=== PATIENT | male | born 1950 | race Caucasian/White ===

== ENCOUNTER 2021-11-28 01:47 | Day surgery (SDC) | payer MEDICARE, SELFPAY ==
[2021-10-15 15:30] VITALS: BMI 33.8
--- NOTE | 2021-11-13 14:11 | SUR.PREOP ---
Patient states no changes in health history or medications since previous interview. Updated on times and prep instructions. No questions at this time.
[2021-11-28 10:07] VITALS: BP 143/76; PULSE 72; RESP 20; TEMP 36.5; O2SAT 98
[2021-11-28] MEDS: LACTATED RINGERS 1,000 ML 150 ML IV CONT (10:14)
--- NOTE | 2021-11-28 10:48 | P.HP_ITS ---
History of Present Illness History of Present Illness Consent: Risks, benefits, and alternatives have been discussed and questions answered. Patient agrees to proceed with procedure. Chief complaint: family hx of colon ca Narrative: Jarocho Lopez is a 71 year old male referred for colon cancer screening. His father had colon cancer. He had a tubular adenoma removed 10 years ago. He had another polyp a small polyp removed somewhere in [place] about 5 years ago. Review of Systems Review of Systems: All systems reviewed & are unremarkable except as noted in HPI and below PMFSH Past Medical History Medical History (Updated 11/28/21 @ 10:49 by Oneil Shah MD) Abnormal colonoscopy History of BPH Hyperlipidemia Surgical History Surgical History (Updated 09/17/21 @ 16:03 by Jacqueline Shaw [facility]) Hx of colonoscopy 09/07/2011-colon polyps, tubular adenoma-repeat 5 years 09/30/2016-sigmoid colon polyp-repeat 5 yrs Family History Family History Father Carcinoma of colon Mother Family history of lung cancer Family history of malignant neoplasm of breast in first degree relative Sibling Family history of malignant neoplasm of breast in first degree relative Social History Social History Smoking status: Never smoker Second hand tobacco smoke exposure: No Alcohol intake: current Drinks per week: 1 Alcohol use details: beer Substance use: never Substance use type: does not use Living arrangements: with family Gender identity (if verbalized by the patient): Male Spiritual care concerns: No Agree to blood products: Yes Meds Home Medications and Allergies Home Medications Medication Instructions Recorded Confirmed Type ferrous sulfate 325 mg (65 mg 325 mg PO DAILY 04/09/20 10/15/21 History iron) tablet (Nilda-Time) Prevagen 1 cap PO DAILY 10/15/21 10/15/21 History simvastatin 10 mg tablet 10 mg PO DAILY 10/15/21 10/15/21 History vitamins A,C,Z-kmlo-qvbjjb 14,320 1 cap PO BID 10/15/21 10/15/21 History unit-226 mg-200 unit capsule (PreserVision AREDS) Allergies Allergy/AdvReac Type Severity Reaction Status Date / Time No Known Allergies Allergy Verified 11/28/21 10:06 Vital Signs Vital Signs - 24 hr 11/28/21 10:07 Temperature 36.5 C Pulse Rate 72 Respiratory Rate 20 Blood Pressure 143/76 H Pulse Oximetry 98 Oxygen Delivery Room Air Exam Resp: Auscultation: clear to auscultation bilaterally Cardio: Rate: regular rate Rhythm: regular rhythm GI: GI Palp: Yes Soft to palpation and No Tenderness to palpation present (GI) Assessment and Plan Assessment and plan (1) Colon cancer screening: Code(s): Z12.11 - Encounter for screening for malignant neoplasm of colon Status: Acute Assessment and Plan: Colonoscopy with possible biopsy or polypectomy or cautery or injection of substances.
--- NOTE | 2021-11-28 10:53 | WPDANESEPPF ---
Anes - Initial Pre Proc Eval Procedure: Operation Date: 11/28/21 11:15 Proposed Procedures p Screening Colonoscopy - Oneil Shah MD Date/Time: 11/28/21 10:53 Surgeon: Oneil Shah MD Pre Op Diagnosis: family hx of colon ca Patient Data Age: 71 Gender: M Height: 1.78 m Weight: 103.1 kg Last Vital Signs Temp 97.7 F 11/28/21 10:07 Pulse 72 11/28/21 10:07 Resp 20 11/28/21 10:07 BP 143/76 H 11/28/21 10:07 Pulse Ox 98 11/28/21 10:07 O2 Del Method Room Air 11/28/21 10:07 Allergies Allergy/AdvReac Type Severity Reaction Status Date / Time No Known Allergies Allergy Verified 11/28/21 10:06 Home Medications Medication Instructions Recorded Confirmed Type ferrous sulfate 325 mg (65 mg 325 mg PO DAILY 04/09/20 10/15/21 History iron) tablet (Nilda-Time) Prevagen 1 cap PO DAILY 10/15/21 10/15/21 History simvastatin 10 mg tablet 10 mg PO DAILY 10/15/21 10/15/21 History vitamins A,C,J-ogta-onyizp 14,320 1 cap PO BID 10/15/21 10/15/21 History unit-226 mg-200 unit capsule (PreserVision AREDS) Patient hx anesthesia problems: none Family hx anesthesia problems: none Results Review: All pre-operative results and documents have been reviewed as part of the pre-operative evaluation. [facility] Past Medical History Medical History (Updated 11/28/21 @ 10:49 by Oneil Shah MD) Abnormal colonoscopy History of BPH Hyperlipidemia Surgical History Surgical History (Updated 09/17/21 @ 16:03 by Jacqueline Shaw CMA) Hx of colonoscopy 09/07/2011-colon polyps, tubular adenoma-repeat 5 years 09/30/2016-sigmoid colon polyp-repeat 5 yrs Family History Family History Father Carcinoma of colon Mother Family history of lung cancer Family history of malignant neoplasm of breast in first degree relative Sibling Family history of malignant neoplasm of breast in first degree relative Social History Social History Smoking status: Never smoker Second hand tobacco smoke exposure: No Alcohol intake: current Drinks per week: 1 Alcohol use details: beer Substance use: never Substance use type: does not use Living arrangements: with family Gender identity (if verbalized by the patient): Male Spiritual care concerns: No Agree to blood products: Yes Anes - Eval Final PreProcedure Day of Procedure 11/28/21 10:53 Patient weight: obese Heart: regular rate and rhythm Lungs: clear to auscultation Airway: Mallampati scale class II Neurological: alert and oriented Last oral intake: >/= 8 hours ASA classification: II Emergent: no Anesthetic plan: proceed Anesthesia type and monitoring: general GIVS and standard monitoring Results Review: All pre-operative results and documents have been reviewed as part of the pre-operative evaluation. Informed Consent: The patient's anesthetic plan and its attendant risks and benefits were discussed with the patient/family/POA. Questions were solicited and answers provided to the satisfaction of the patient/family/POA.
[2021-11-28 11:20] VITALS: BP 124/84; PULSE 63; RESP 20; O2SAT 96
[2021-11-28 11:30] VITALS: BP 127/84; PULSE 63; RESP 20; O2SAT 98
[2021-11-28 11:38] VITALS: BP 125/86; PULSE 61; RESP 20; O2SAT 98
== END 2021-11-28 11:48 | disposition home or self-care (01) ==
PROVIDERS: PCP Family Medicine; Visit Provider Internal Medicine Gastroenterology
PROC: 0DJD8ZZ Inspection of Lower Intestinal Tract, Via Natural or Artificial Opening Endoscopic (ICD-10-PCS; CPT 45378; principal; 2021-11-28 11:15)
DX: Z12.11 Encounter for screening for malignant neoplasm of colon (principal); K57.30 Diverticulosis of large intestine without perforation or abscess without bleeding; Z80.0 Family history of malignant neoplasm of digestive organs; Z86.010 Personal history of colon polyps; E78.5 Hyperlipidemia, unspecified; E66.9 Obesity, unspecified; Z68.32 Body mass index [BMI] 32.0-32.9, adult
CPT/HCPCS: G0105; J2704; J7120

== ENCOUNTER 2024-11-27 21:10 | Emergency (ER) | payer MEDICARE, SELFPAY ==
--- NOTE | ~2024-11-27 | CT_ITS ---
Non-contrast CT scan of the Abdomen and Pelvis Clinical indication: Right flank pain Technique: 2.5 mm axial scans were obtained through the abdomen and pelvis without intravenous or or al contrast. Dose reduction technique was used on this scan by utilizing automated exposure control a nd iterative reconstruction technique. The dose-length product (DLP) was 1202.04 mGy-cm. Findings: Images through the lung bases reveal left basilar atelectatic change or scarring. 10 mm nonobstructing left lower pole renal stone present. Punctate nonobstructing right renal stone p resent. No ureteral stone or hydronephrosis on either side. Probable subtle 3.4 cm hypodense mass at the upper left hepatic lobe (axial image 45). The spleen, pa ncreas, gallbladder, and adrenals appear normal. There is no extensive atherosclerotic calcification of the aorta with 3.5 cm infrarenal abdominal aortic aneurysm. There is no evidence of bowel obstruction. Images through the pelvis were performed. There is no evidence of ascites or lymphadenopathy. Urinary bladder unremarkable. No pelvic mass seen. No ascites. Impression: Bilateral nonobstructing renal stones, as detailed above. No ureteral stone or hydronephrosis. Probable subtle 3.4 cm hypodense hepatic mass, as above. Follow-up pre and postcontrast MR recommende d to further assess. 3.5 cm infrarenal abdominal aortic aneurysm. Reviewed, dictated and finalized at [facility]. Impression: Bilateral nonobstructing renal stones, as detailed above. No ureteral stone or hydronephrosis. Probable subtle 3.4 cm hypodense hepatic mass, as above. Follow-up pre and post contrast MR recommended to further assess. 3.5 cm infrarenal abdominal aortic aneurysm.
[2024-11-27 21:11] VITALS: BP 149/96; PULSE 70; RESP 18; TEMP 36.9; O2SAT 97
--- OUTSIDE RECORDS SUMMARY | 2024-11-27 21:12 | XMS_ITS | Clinical Summary ---
Author Organization [facility] Address [address] [place] [address] Care Team Providers Care Material Clerk Name Role Phone Unavailable Primary Care Provider Unavailabl e Source Comments [facility] [employer],non-owned Affiliates and Associated Physician Practices is amultiple site organization consisting of ambulatory clinics and hospital sitesin [place], [place], [place] and [place]. This disclosure is being madepursuant to the Care Everywhere program and may not contain all information available regarding this patient. Last updated 18.[facility] [employer] Social History Tobacco Use Types Packs/Day Years Used Date Smoking Tobacco: Never Assessed Sex and Gender Information Value Date Recorded Sex Assigned at Not on file Legal Sex Male 5:01 PM CDT Gender Identity Not on file Sexual Orientation Not on file Plan of Treatment Health Maintenance Due Date Last Done Comments COLOGUARD (AGES 45-75) - COL ON CA SCREENING 1950 COLON MONITORING 1950 COLONOSCOPY - COLON CA SCREENING 1950 CT COLONOGRAPHY - COLON CA SCREENING 1950 Colorectal Cancer Screening 1950 FIT - COLON CA SCREENING 1950 FLEX SIG - COLON CA SCREENING 1950 LIPID TESTING 1950 HEPATITIS C SCREENING 01/22/1968 DTAP/TDAP/TD VACCINES (1 - Tdap) 1969 PNEUMOCOCCAL VACCINE 50+ (1 of 1 - PCV) 01/27/2000 ZOSTER VACCINE (1 of 2) 01/27/2000 COVID-19 VACCINE ( - 2023-2 5 season) 2024 DEPRESSION SCREENING 05/31/2024 MEDICARE AWV CALENDAR YEAR 2024 Respiratory Syncytial Virus (RSV) Vaccine Pt: or over 60 yrs (1 - 1-dose 75+ series) 2025 INFLUENZA VACCINE (Season Ended) 2025 HEPATITIS B VACCINE Aged Out No longe r eligible based on patient's age to complete this topic HIB VACCINE Aged Out No longer eligi ble based on patient's age to complete this topic HPV VACCINE Aged Out No longer eligi ble based on patient's age to complete this topic MENINGOCOCCAL (Group B) VACC INE SHARED DECISION-MAKING Aged Out No longer eligibl e based on patient's age to complete this topic MENINGOCOCCAL GROUPS A/C/Y/W VACCINE Aged Out No longer eligible b ased on patient's age to complete this topic Insurance AETNA MEDICARE ADV
--- OUTSIDE RECORDS SUMMARY | 2024-11-27 21:12 | XMS_ITS | Encounter Summary ---
Author Organization [facility] Address [address] [address] Care Team Providers Care Group Rooms Coordinator Name Role Phone Unavailable Primary Care Provider Unavailabl e Encounter Details Date Type Department Care Team (Late st Contact Info) Description 09/02/2023 Lab Requisition [facility] - DermPath Lab [address] [place] [id number] Bran Mullen MD [facility] DERMATOLOGY [address] [place] [phone] Neoplasm of uncertain behavior of skin Social History Tobacco Use Types Packs/Day Years Used Date Smoking Tobacco: Never Assessed Sex and Gender Information Value Date Recorded Sex Assigned at Not on file Legal Sex Male 5:01 PM CDT Gender Identity Not on file Sexual Orientation Not on file documented as of this encounter Plan of Treatment Not on file documented as of this encounter Procedures Procedure Name Priority Date/Time Associated Diagnosis Comments DERMATOPATHOLOGY Routine 09/02/2023 3:33 AM CDT Neoplasm of uncertain behavior of skin documented in this encounter Results * DERMATOPATHOLOGY (09/02/2023 3:33 AM CDT) Case Report Dermatopathology Report Case: [id number] Authorizing Provider: Bran Mullen MD Collected: 09/02/2023 03:33 AM Ordering Location: [facility] Physician [facility] - Received: 09/03/2023 01:31 PM DermPath Lab Pathologist: Laura Childers MD Specimens: A) - Skin, right chin B) - Skin, left forearm 12:44 PM CDT DERMATOPATHOLOGY LABORATORY Final Diagnosis Specimen A. SKIN, right chin: NEUROFIBROMA (D36.10) Specimen B. SKIN, left forearm: ACTINIC KERATOSIS, INFLAMED (L57.0) 12:44 PM CDT DERMATOPATHOLOGY LABORATORY at 1244 CDT Clinical History A: Basal Cell Carcinoma vs Neurofibroma B: Basal Cell Carcinoma vs Irritated Seborrheic 12:44 PM CDT DERMATOPATHOLOGY LABORATORY Gross Description Specimen A: Received is one formalin filled container labeled with the patient's name and designated right chin. The specimen consists of a two pieces shave biopsy measuring 7x5x1, 4x3x1 mm. Jar 0. Specimen B: Received is one formalin filled container labeled with the patient's name and designated left forearm. The specimen consists of a shave biopsy measuring 7x5x1 mm. Jar 0. 12:44 PM CDT DERMATOPATHOLOGY LABORATORY Microscopic Description Specimen A. SKIN, right chin: Sections show a proliferation of spindled and S-shaped cells within the dermis. The stromal collagen is delicate and pale. Specimen B. SKIN, left forearm: There is focal parakeratosis. The lower half of the epidermis shows disorderly maturation of keratinocytes with nuclear pleomorphism. The lesion is inflamed. 12:44 PM CDT DERMATOPATHOLOGY LABORATORY Disclaimer An external and internal positive and negative controls are appropriate for the histochemical, immunohistochemical and immunofluorescence stain(s) in this case (if any), except where stated explicitly. The performance characteristics of the stain(s) cited in this report were developed and its performance characteristic determined by the Dermatopathology Laboratory at [facility], directed by Dr. Danay Fung. These tests need not be, and therefore are not, approved by the [place] Food and Drug Administration. The tests are used for clinical purposes. Billing Codes Specimen Charges Stain Charges 96625 [id number] 1 1 12:44 PM CDT DERMATOPATHOLOGY LABORATORY Embedded Images 12:44 PM CDT DERMATOPATHOLOGY LABORATORY Pathology/Cytology TISSUE SPECIMEN FROM SKIN / Unknown 09/02/2023 3:33 AM CDT 09/03/2023 1:31 PM CDT Miscellaneous samples (specimen) TISSUE SPECIMEN FROM SKIN / Unknown 09/02/2023 3:33 AM CDT 09/03/2023 1:31 PM CDT us Bran Mullen MD LAB - PATHOLOGY/CYTOLOGY ANALILIA HOGAN Final Result DERMATOPATHOLOGY LABORATORY [facility] - Department of Dermatology [facility] [address] [place] [address], [address] [phone] documented in this encounter Visit Diagnoses Diagnosis Neoplasm of uncertain behavior of skin documented in this encounter
--- OUTSIDE RECORDS SUMMARY | 2024-11-27 21:12 | XMS_ITS | Clinical Summary ---
Author Organization [facility] Address [address] [place] [address] Care Team Providers Care Sand Mixer Operator Name Role Phone Aubrie Gupta Primary Care Provider [phone] Allergies No known active allergies Medications simvastatin (ZOCOR) 20 MG tablet Take 1 tablet (20 mg total) by mouth nightly at bedtime. 03/10/2024 Active Multiple Vitamins-Minera ls (PRESERVISION AREDS OR) Active vitamin B-12 (CYANOCOBALAMIN ) 100 MCG tablet Take 0.5 tablets (50 mcg total) by mouth daily. Active Ferrous Sulfate (IRON) 325 (65 Fe) MG tablet Take 325 mg by mouth daily with breakfast. Active Active Problems No known active problems Family History Medical History Relation Comments Cancer Father colon Heart Disease Father Cancer Mother Heart Disease Mother Stroke Mother Cancer Sister breast ca Hypertension Sister Relation Status Comments Father Mother Sister Alive Social History Tobacco Use Types Packs/Day Years Used Date Smoking Tobacco: Never Passive Smoke Exposure: Never Smokeless Tobacco: Never Tobacco Cessation:Counseling Given: No Alcohol Use Standard Drinks/Week Comments Yes 0 (1 standard drink = 0.6 oz pur e alcohol) PHQ-2 Answer Date Recorded Patient Health Questionnaire-2 Score 0 05/15/2024 Sex and Gender Information Value Date Recorded Sex Assigned at Not on file Legal Sex Male 10:22 PM CASH APPLICATIONS REPRESENTATIVE Gender Identity Not on file Sexual Orientation Not on file Last Filed Vital Signs Vital Sign Reading Time Taken Comments Blood Pressure 138/86 05/15/2024 8:00 AM CASH APPLICATIONS REPRESENTATIVE Pulse 88 05/15/2024 8:00 AM CASH APPLICATIONS REPRESENTATIVE Temperature 36.6 C (97.8 F) 05/15/2024 8:00 AM CASH APPLICATIONS REPRESENTATIVE Respiratory Rate 20 05/15/2024 8:00 AM CASH APPLICATIONS REPRESENTATIVE Oxygen Saturation 96% 05/15/2024 8:00 AM CASH APPLICATIONS REPRESENTATIVE Inhaled Oxygen Concentration - - Weight 106.6 kg (235 lb) 05/15/2024 8:00 AM CASH APPLICATIONS REPRESENTATIVE Height 177.8 cm (5' 10) 05/15/2024 8:00 AM CASH APPLICATIONS REPRESENTATIVE Body Mass Index 33.72 05/15/2024 8:00 AM CASH APPLICATIONS REPRESENTATIVE Plan of Treatment Health Maintenance Due Date Last Done Comments Colorectal Cancer Screening Colonoscopy (10 Years) 1950 Hepatitis C 01/27/1968 DTaP, Tdap and Td Vaccines ( 1 - Tdap) 1969 Pneumococcal Vaccine: 50+ Ye ars (1 of 1 - PCV) 01/27/2000 Zoster Vaccines (1 of 2) 01/27/2000 Annual Medicare Wellness Visit 2015 COVID-19 Vaccine (1 - 2023-2 5 season) 2024 PHQ-2 (Physician [place]) 05/31/2024 05/15/2024 RSV Immunization or 60+ Years (1 - 1-dose 75+ series) 2025 Meningococcal B Vaccine Aged Out No l onger eligible based on patient's age to complete this topic Meningococcal Vaccine Aged Out No shayna sharad eligible based on patient's age to complete this topic RSV Immunizations Under 20 Months Aged Out No longer eligible based on patient's age to complete this topic Insurance AETNA Care Teams Sand Mixer Operator Relationship Specialty Start Date End Date Aubrie Gupta DO PCP - General FAMILY PRACTICE 12/07/19
[2024-11-27 23:36] VITALS: BP 145/71; PULSE 87; RESP 20; O2SAT 97
[2024-11-27 23:52] LABS: Hematocrit 44.1 % (42.0-52.0); Hemoglobin 15.1 g/dL (14.0-18.0); Immature Granulocyte Percent A 0.1 % (0-0.5); Lymphocytes Absolute Auto 1.31 K/mm3 (0.9-3.2); Mean Corpuscular HGB Conc 34.2 g/dl (32-36); Mean Corpuscular Hemoglobin 31.6 pg (26-34); Mean Corpuscular Volume 92.3 fl (80-100); Nucleated Red Blood Cells Absolute Auto 0.000 K/mm3 (0.0-0.012); Nucleated Red Blood Cells Perc 0.0 % (0.0-0.2); Platelet Count Result 166 k/mm3 (150-375); Red Blood Count 4.78 M/mm3 (4.6-6.20); White Blood Count 8.1 K/mm3 (4.5-10.0)
--- OUTSIDE RECORDS SUMMARY | 2024-11-27 23:57 | XMS_ITS | Clinical Summary ---
Author Organization [facility] Address [address] [place] [address] Care Team Providers Care Six Pack Loader Operator Name Role Phone Unavailable Primary Care Provider Unavailabl e Source Comments [facility] [employer],non-owned Affiliates and Associated Physician Practices is amultiple site organization consisting of ambulatory clinics and hospital sitesin [place], [place], [place] and [place]. This disclosure is being madepursuant to the Care Everywhere program and may not contain all information available regarding this patient. Last updated 18.[facility] [employer] Social History Tobacco Use Types Packs/Day Years [...]
--- OUTSIDE RECORDS SUMMARY | 2024-11-27 23:57 | XMS_ITS | Clinical Summary ---
Author Organization [facility] Address [address] [place] [address] Care Team Providers Care Clinical Services Consultant Name Role Phone Aubrie Gupta Primary Care Provider [phone]- [phone] Allergies No known active allergies Medications simvastatin [...] on file Legal Sex Male 10:22 PM COMPOUND COATING MACHINE OFFBEARER Gender Identity Not on file Sexual Orientation Not on file Last Filed Vital Signs Vital Sign Reading Time Taken Comments Blood Pressure 138/86 05/15/2024 8:00 AM COMPOUND COATING MACHINE OFFBEARER Pulse 88 05/15/2024 8:00 AM COMPOUND COATING MACHINE OFFBEARER Temperature 36.6 C (97.8 F) 05/15/2024 8:00 AM COMPOUND COATING MACHINE OFFBEARER Respiratory Rate 20 05/15/2024 8:00 AM COMPOUND COATING MACHINE OFFBEARER Oxygen Saturation 96% 05/15/2024 8:00 AM COMPOUND COATING MACHINE OFFBEARER Inhaled Oxygen Concentration - - Weight 106.6 kg (235 lb) 05/15/2024 8:00 AM COMPOUND COATING MACHINE OFFBEARER Height 177.8 cm (5' 10) 05/15/2024 8:00 AM COMPOUND COATING MACHINE OFFBEARER Body Mass Index 33.72 05/15/2024 8:00 AM COMPOUND COATING MACHINE OFFBEARER Plan of Treatment Health Maintenance Due Date Last Done Comments Colorectal Cancer Screening Colonoscopy (10 Years) 1950 Hepatitis C 01/27/1968 DTaP, Tdap and Td Vaccines ( 1 - Tdap) 1969 Pneumococcal Vaccine: 50+ Ye ars (1 of 1 - PCV) 01/27/2000 Zoster Vaccines (1 of 2) 01/27/2000 Annual Medicare Wellness Visit 2015 COVID-19 Vaccine (1 - 2023-2 5 season) 2024 PHQ-2 (Physician [place]) 05/31/2024 05/15/2024 RSV Immunization or 60+ Years [...] complete this topic Insurance AETNA Care Teams Clinical Services Consultant Relationship Specialty Start Date End Date Aubrie Gupta DO PCP - General FAMILY PRACTICE 12/07/19
--- OUTSIDE RECORDS SUMMARY | 2024-11-27 23:57 | XMS_ITS | Encounter Summary ---
Author Organization [facility] Address [address] [place] [address] Care Team Providers Care Train Electronic Technician Name Role Phone Unavailable Primary Care Provider Unavailabl e Encounter Details Date Type Department Care Team (Late st Contact Info) Description 09/02/2023 Lab Requisition [facility]ician Group - DermPath Lab [address] [place] [phone] Bran Mullen MD [facility] DERMATOLOGY [address] [place] [phone] Neoplasm of uncertain behavior of skin [...] AM CDT) Case Report Dermatopathology Report Case: [id number] Authorizing Provider: Bran Mullen MD Collected: 09/02/2023 03:33 AM Ordering Location: [facility] Physician [facility] - Received: 09/03/2023 01:31 PM DermPath Lab [...] characteristic determined by the Dermatopathology Laboratory at [facility], directed by Dr. Danay Fung. These tests need not be, and therefore are not, approved by the [place] Food and Drug Administration. The tests are used for clinical purposes. Billing Codes Specimen Charges Stain Charges [id number] 1 1 12:44 PM CDT DERMATOPATHOLOGY LABORATORY Embedded Images 12:44 PM CDT DERMATOPATHOLOGY LABORATORY Pathology/Cytology TISSUE SPECIMEN FROM SKIN / Unknown 09/02/2023 3:33 AM CDT 09/03/2023 1:31 PM CDT Miscellaneous samples (specimen) TISSUE SPECIMEN FROM SKIN / Unknown 09/02/2023 3:33 AM CDT 09/03/2023 1:31 PM CDT us Bran Mullen MD LAB - PATHOLOGY/CYTOLOGY ANALILIA HOGAN Final Result DERMATOPATHOLOGY LABORATORY [facility] - Department of Dermatology [facility] [address] [place] [address], [address] [phone] documented in this encounter Visit Diagnoses Diagnosis Neoplasm of uncertain behavior of skin documented in this encounter
--- NOTE | 2024-11-28 | PC.NURSE ---
Pt aware of need for urine. Urine cup placed at bedside. Pt educated on use of call light for when urine sample is obtained. Refuses straight cath at this time.
[2024-11-28 00:07] LABS: Alanine Aminotransferase 9 U/L (6-50); Albumin Level 4.2 g/dL (3.5-5.1); Alkaline Phosphatase 46 U/L (38-126); Anion Gap 10 mmol/L (4-12); Aspartate Amino Transferase 27 U/L (17-59); Bilirubin,Total 0.6 mg/dL (0.2-1.3); Blood Urea Nitrogen 23 mg/dL (9-20); Calcium 8.9 mg/dL (8.4-10.2); Carbon Dioxide 24 mmol/L (22-30); Chloride 106 mmol/L (98-107); Estimated CRCL calculation 70 ml/min; Estimated Glomerular Filt Rate > 60; Glucose 118 mg/dL (65-110); Potassium 4.0 mmol/L (3.4-5.0); Sodium 140 mmol/L (137-145); Total Protein 7.4 g/dL (6.3-8.2)
--- NOTE | 2024-11-28 00:15 | ECG_ITS ---
Test Date: 2024-11-28 00:52:01 Measurements Intervals [place] Rate: 82 P: 19 CT: 145 QRS: -14 QRSD: 97 T: 5 QT: 367 QTc: 431 Interpretive Statements SINUS RHYTHM WITH FREQUENT VENTRICULAR PREMATURE COMPLEXES IN A BIGEMINAL PATTERN NONSPECIFIC T-WAVE ABNORMALITY ABNORMAL ECG No previous ECG available for comparison Electronically Signed On 11-28-2024 17:57:08 CDT by Tiffany Ho
--- NOTE | 2024-11-28 00:16 | ED.ABDPAIN ---
HPI - Abdominal Pain General Chief Complaint: Urogenital-Male Stated Complaint: Right flank pain-poss kidney stone Time Seen by Provider: 11/27/24 23:49 Source: patient Mode of arrival: ambulatory Limitations: no limitations History of Present Illness HPI narrative: This is a 74 year old male that presents to the ER for right flank pain. Ongoing over the last couple of weeks. Acutely worsening tonight. Reports history of kidney stone in the past, his pain feels similar. Denies fevers, vomiting, dysuria, hematuria. Related Data Home Medications ?Medication ?Instructions ?Recorded ?Confirmed ?Last Taken ?Type ferrous sulfate 325 mg (65 mg 325 mg PO DAILY 04/09/20 09/25/24 Unknown History iron) tablet (Nilda-Time) Prevagen 1 cap PO DAILY 10/15/21 09/25/24 Unknown History vitamins A,C,X-zogz-wtdkwd 4,296 1 cap PO BID 10/15/21 09/25/24 Unknown History mcg-226 mg-90 mg capsule (PreserVision AREDS) cyanocobalamin (vitamin B-12) 2,000 mcg PO DAILY 04/03/24 09/25/24 Unknown History 1,000 mcg tablet aluminum hydrox-magnesium carb 160 See Rx Instructions PO .COMPLEX 09/28/24 Unknown History mg-105 mg chewable tablet (Gaviscon Extra Strength) Allergies Allergy/AdvReac Type Severity Reaction Status Date / Time No Known Allergies Allergy Verified 11/27/24 21:16 Review of Systems Review of Systems: All systems reviewed & are unremarkable except as noted in HPI and below PMFSH Past Medical History Medical History (Updated 11/28/24 @ 03:01 by Marilu Mathias PA-C) DEE (obstructive sleep apnea) Sleep study 04/04/2024, AHI 28.2-C/W moderate DEE with significant oxygen desaturations Vitamin B12 deficiency Posterior vitreous detachment AMD (age related macular degeneration) Low testosterone Fatigue Hyperglycemia Abnormal colonoscopy Iron deficiency Hyperlipidemia History of BPH Surgical History Surgical History Hx of colonoscopy 09/07/2011-colon polyps, tubular adenoma-repeat 5 years 09/30/2016-sigmoid colon polyp-repeat 5 yrs Family History Family History Father Carcinoma of colon Mother Family history of lung cancer Family history of malignant neoplasm of breast in first degree relative Sibling Family history of malignant neoplasm of breast in first degree relative Social History Social History (Updated 09/22/24 @ 15:06 by Simba Serra) Social History: 09/19/24 very confident with medical forms Smoking status: Never smoker Second hand tobacco smoke exposure: No Alcohol intake: current Drinks per week: 1 Alcohol use details: beer Substance use: never Substance use type: does not use Do You Feel Safe in your Home?: Yes Lack of Transportation: No Lack of Food: Never True Current Housing: I Have Housing Concerned About Future Housing: No Difficulty Paying Gas/Electric Bills: No Difficulty Paying for Meds: No Currently Unemployed: No Education: Bachelor's Degree Difficulty w/ Childcare or Family Care: No Living arrangements: with family Occupation/Education: retired Gender identity (if verbalized by the patient): Male Spiritual care concerns: No Agree to blood products: Yes Exam Narrative: GENERAL: Well-appearing, well-nourished, and in no acute distress. HEAD: Normocephalic, atraumatic. EYES: EOMI. CHEST: Clear to auscultation. No respiratory distress. No wheezes rales or rhonchi HEART: Regular rate, irregular rhythm. No murmur heard. Normal peripheral pulses. ABDOMEN: Soft, nontender, nondistended, normal active bowel sounds. EXTREMITIES: Normal range of motion. No edema. SKIN: Warm, dry, no rash. NEURO: No focal deficits. Alert and oriented x3. PSYCH: Normal mood and affect Course Course Emergency Course: Patient and family updated on workup and agree with plan of care Vital Signs Vital signs: Vital Signs Temperature 98.4 F 11/27/24 21:11 Pulse Rate 70 11/27/24 21:11 Respiratory Rate 18 11/27/24 21:11 Blood Pressure 149/96 H 11/27/24 21:11 Pulse Oximetry 97 11/27/24 21:11 Oxygen Delivery Room Air 11/27/24 21:11 Temperature 98.4 F 11/27/24 21:11 Pulse Rate 87 11/27/24 23:36 Respiratory Rate 20 11/27/24 23:36 Blood Pressure 145/71 H 11/27/24 23:36 Pulse Oximetry 97 11/27/24 23:36 Oxygen Delivery Room Air 11/27/24 23:36 MDM - Abdominal Pain MDM Narrative Medical decision making narrative: Patient presents the emergency department for right flank pain. He is afebrile and nontoxic appearing. His vitals are stable. CBC without leukocytosis. Metabolic panel with normal appearing kidney function. Urine possible evidence of infection, this was sent for culture. CT abdomen and pelvis shows nonobstructive nephrolithiasis. Bladder wall thickening. Several incidental findings, including hepatic cyst, AAA measuring 3.2 x 3.2 cm. Patient and family updated on workup and agree with plan of care. Instructed to have further outpatient evaluation. Will be started on oral antibiotics. He was given warnings to return to the ER Differential Diagnosis Differential diagnosis: Likely calculus of kidney, constipation, diverticulitis and other (UTI) Lab Data Attestation: I reviewed the patient's lab results. 11/27/24 23:47 11/27/24 23:47 Labs: Lab Results 11/27/24 11/27/24 11/28/24 Range/Units 23:45 23:47 00:10 WBC 8.1 (4.5-10.0) K/mm3 RBC 4.78 (4.6-6.20) M/mm3 Hgb 15.1 (14.0-18.0) g/dL Hct 44.1 (42.0-52.0) % MCV 92.3 (80-100) fl MCH 31.6 (26-34) pg MCHC 34.2 (32-36) g/dl RDW 12.3 (11.5-14.5) % Plt Count 166 (150-375) k/mm3 MPV 10.0 (7.4-10.4) fl Immature Gran % (Auto) 0.1 (0-0.5) % Neut % (Auto) 72.9 (45.5-73.1) % Lymph % (Auto) 16.2 L (18.3-44.2) % [place] % (Auto) 8.0 (2.6-8.5) % Eos % (Auto) 2.2 (0-4.4) % Baso % (Auto) 0.6 (0.2-1.2) % Lymph # (Auto) 1.31 (0.9-3.2) K/mm3 [place] # (Auto) 0.7 H (0.1-0.6) K/mm3 Eos # (Auto) 0.2 (0-0.3) K/mm3 Baso # (Auto) 0.1 (0.0-0.1) K/mm3 Abs Immat Gran (auto) 0.01 (0.00-0.031) K/mm3 Absolute Neuts (auto) 5.9 (1.3-6.7) K/mm3 Absolute Nucleated RBC 0.000 (0.0-0.012) K/mm3 Nucleated RBC % 0.0 (0.0-0.2) % Sodium 140 (137-145) mmol/L Potassium 4.0 (3.4-5.0) mmol/L Chloride 106 (98-107) mmol/L Carbon Dioxide 24 (22-30) mmol/L Anion Gap 10 (4-12) mmol/L BUN 23 H (9-20) mg/dL Creatinine 1.00 (0.7-1.3) mg/dL Estim Creat Clear Calc 70 ml/min Estimated GFR > 60 (59 - ) Glucose 118 H (65-110) mg/dL Calcium 8.9 (8.4-10.2) mg/dL Magnesium 2.2 (1.6-2.3) mg/dL Total Bilirubin 0.6 (0.2-1.3) mg/dL AST 27 (17-59) U/L ALT 9 (6-50) U/L Alkaline Phosphatase 46 (38-126) U/L Total Protein 7.4 (6.3-8.2) g/dL Albumin 4.2 (3.5-5.1) g/dL Urine Color Dark yellow (Yellow) Urine Appearance Clear (Clear) Urine pH 5.0 (5.0-9.0) Ur Specific [employer] 1.030 (1.001-1.035) Urine Protein Trace (Negative) mg/dL Urine Glucose (UA) Negative (Negative) mg/dL Urine Ketones Trace H (Negative) mg/dL Ur Blood (Man) Negative (Negative) Urine Nitrate Negative (Negative) Urine Bilirubin Negative (Negative) Urine Urobilinogen 1.0 (<2.0) mg/dL Add Ur Microanalysis Reviewed Leukocyte Esterase Rfl Trace H (Negative) TREVON/UL Urine RBC 0-2 (0-2) /hpf Urine WBC 6-10 H (0-3) /hpf Ur Squamous Epith Cells None seen (Few) /hpf Urine Bacteria None seen /hpf Urine Casts 0-2 Imaging Data Radiologist's impression: CT abdomen/pelvis: Nonobstructive nephrolithiasis noted bilaterally. No hydronephrosis or definite ureteral stones. No bladder stones. Bladder wall thickening. Cyst in the right kidney. 2.8 x 3 x 1.9 cm hypodense area in the liver. Likely hepatic cyst. The gallbladder is decompressed. No calcified gallstones. No biliary dilatation. The unenhanced pancreas, spleen and adrenal glands are unremarkable. No bowel obstruction. Mild stool burden. Fusiform infrarenal abdominal aortic aneurysm measuring 3.2 x 3.2 cm ECG Data EKG #1: ECG completion date: 11/28/24 normal rate, sinus rhythm, no ST changes, normal QT and other (bigeminy) Critical Care Time Critical Care Time Critical Care Time: No Discharge Plan Discharge Clinical Impression: Acute UTI, Hepatic cyst, Abdominal aortic aneurysm (AAA) 3.0 cm to 5.5 cm in diameter in male, Cardiac premature complexes Patient Disposition: Home Condition: Stable Instructions: Antibiotic Form, Urinary Tract Infection in Men (ED), Nonruptured Abdominal Aortic Aneurysm (DC), Premature Ventricular Contractions (ED), Cyst (ED) Additional Instructions: Return to the ER if you experience fever, abdominal pain with nausea and vomiting, you are unable to keep down liquids or solids, blood in the stool, blood in the urine or any other symptoms that are concerning to you Remain well hydrated. Take oral antibiotics as prescribed. Tylenol or Ibuprofen as needed for pain You were incidentally found to have an abdominal aortic aneurysm, a hepatic cyst, premature complexes on your EKG, all will need further outpatient evaluation/monitoring. You have stones, but they are still in your kidneys and do not cause pain/problems until they go into your ureter Follow up with your primary care doctor Patient Language: American Prescriptions: New cefdinir 300 mg capsule 300 mg PO Q12H 5 Days Qty: 10 0RF No Action ferrous sulfate [Nilda-Time] 325 mg (65 mg iron) tablet 325 mg PO DAILY PreserVision AREDS [id number] Capsule 1 cap PO BID Prevagen 1 cap PO DAILY cyanocobalamin (vitamin B-12) 1,000 mcg tablet 2,000 mcg PO DAILY simvastatin 20 mg tablet 20 mg PO QHS Qty: 90 0RF Gaviscon Extra Strength 160-105 mg tablet,chewable See Rx Instructions PO .COMPLEX Rx Instructions: orally Take as directed after meals & bedtime. (May substitute GasX) Follow-up/Referrals: Racheal Tovar PA-C [Primary Care Provider] -
[2024-11-28] MEDS: MORPHINE SULFATE (*CRX) 4 MG/ML INJ IV PUSH (00:33)
[2024-11-28] MEDS: ONDANSETRON INJ 4 MG/2 ML VIAL IV PUSH (00:33)
[2024-11-28 00:52] LABS: Add Urine Microscopic? YES; Appearance Urine Clear (Clear); Glucose Urine UA Negative (Negative); Leukocyte Esterase Ur Trace LEU/UL (Negative); Need Manual Microscopic Reviewed; Nitrate Urine Negative (Negative); Non Pathogenic Casts 0-2; Specific Grav Ur 1.030 (1.001-1.035)
[2024-11-28 01:27] LABS: Magnesium 2.2 mg/dL (1.6-2.3)
[2024-11-28 03:20] VITALS: BP 123/67; PULSE 95; RESP 20; O2SAT 91
[2024-11-28 03:21] VITALS: BP 123/67; PULSE 95; RESP 20; O2SAT 91
== END 2024-11-28 03:23 | disposition home or self-care (01) ==
PROVIDERS: Student in an Organized Health Care Education/Training Program; Emergency Provider Physician Assistant; PCP Physician Assistant Medical
DX: N39.0 Urinary tract infection, site not specified (principal); K76.89 Other specified diseases of liver; I71.40 Abdominal aortic aneurysm, without rupture, unspecified; I49.3 Ventricular premature depolarization
CPT/HCPCS: 36415; 74176; 80053; 81001; 83735; 85025; 87086; 93005; 96374; 96375; 99284; J2270; J2405

== ENCOUNTER 2025-01-08 16:00 | Outpatient (CLI) | payer MEDICARE, SELFPAY ==
--- NOTE | ~2025-01-08 | MR_ITS ---
EXAMINATION: MR abdomen wo/w con DATE: 01/09/2025 0:29 CDT INDICATION: Abnormal imaging of the liver TECHNIQUE: Magnetic resonance imaging (MRI) of the abdomen was performed without and with intravenous contrast. Sequences included coronal T2-weighted SS-FSE, coronal and axial FS 2D-FIESTA, axial STIR FSE, axial T2-weighted SS-FSE, axial T2-weighted FS SS-FSE, axial diffusion-weighted SE, axial dual- echo T1-weighted FSPGR, and axial and coronal T1-weighted LAVA. Postcontrast axial T1-weighted LAVA i mages were obtained in a time course. Postcontrast coronal T1-weighted LAVA images were obtained. COMPARISON: None. Reference is made to a CT examination of the abdomen and pelvis dated 11/28/2024 FINDINGS: The abnormality within segment 4 of the liver measures 2.6 x 3.2 x 2.6 cm (anterior to posterior x me dial to lateral x cranial to caudal dimension). This focus demonstrates decreased signal intensity prior to the administration of intravenous contras t which fills in on delayed imaging, consistent with a benign hemangioma. The remainder of the liver demonstrates subcentimeter cysts, but is otherwise unremarkable. The gallbladder is only minimally distended, and otherwise unremarkable. 2 and 4 mm well-circumscribed foci of increased T2 signal intensity are identified within the bilater al kidneys, consistent with simple cysts. Redemonstration of a 3.5 cm infrarenal abdominal aneurysm. No abnormal signal intensity is identified within the pancreas. IMPRESSION: Findings within segment 4 of the liver which are most consistent with a benign hemangioma secondary t o enhancement pattern and signal intensity. Multiple (likely) simple cysts within the bilateral kidneys. Reviewed, dictated and finalized at location A. IMPRESSION: Findings within segment 4 of the liver which are most consistent with a benign hemangioma secondary to enhancement pattern and signal intensity. Multiple (likely) simple cysts within the bilateral kidneys.
--- OUTSIDE RECORDS SUMMARY | 2025-01-08 16:04 | XMS_ITS | Encounter Summary ---
Author Organization [facility] Address [address] [place] [address] Care Team Providers Care Farmworker Poultry Name Role Phone Unavailable Primary Care Provider Unavailabl e Encounter Details Date Type Department Care Team (Late st Contact Info) Description 09/02/2023 Lab Requisition [facility] - DermPath Lab [address] [place] [id number] Bran Mullen MD [facility] [address] [place] [phone] Neoplasm of uncertain behavior of skin [...] AM CDT) Case Report Dermatopathology Report Case: [id number] Authorizing Provider: Bran Mullen MD Collected: 09/02/2023 03:33 AM Ordering Location: [facility] - Received: 09/03/2023 01:31 PM [...] characteristic determined by the Dermatopathology Laboratory at [facility], directed by Dr. Danay Fung. These tests need not be, and therefore are not, approved by the [place] Food and Drug Administration. The tests are used for clinical purposes. Billing Codes Specimen Charges Stain Charges 29468 59360 1 1 12:44 PM CDT DERMATOPATHOLOGY LABORATORY Embedded Images 12:44 PM CDT DERMATOPATHOLOGY LABORATORY Pathology/Cytology TISSUE SPECIMEN FROM SKIN / Unknown 09/02/2023 3:33 AM CDT 09/03/2023 1:31 PM CDT Miscellaneous samples (specimen) TISSUE SPECIMEN FROM SKIN / Unknown 09/02/2023 3:33 AM CDT 09/03/2023 1:31 PM CDT us Bran Mullen MD LAB - PATHOLOGY/CYTOLOGY ANALILIA HOGAN Final Result DERMATOPATHOLOGY LABORATORY [facility] - Department of Dermatology Specialized Medicine [address] [place] [address], [address] [phone] documented in this encounter Visit Diagnoses Diagnosis Neoplasm of uncertain behavior of skin documented in this encounter
--- OUTSIDE RECORDS SUMMARY | 2025-01-08 16:04 | XMS_ITS | Clinical Summary ---
Author Organization [facility] Address [address] [place] [address] Care Team Providers Care Blast Furnace Blower Name Role Phone Unavailable Primary Care Provider Unavailabl e Source Comments [facility],non-owned Affiliates and Associated Physician Practices is amultiple site organization consisting of ambulatory clinics and hospital sitesin [place], [place], [place]. This disclosure is being madepursuant to the Care Everywhere program and may not contain all information available regarding this patient. Last updated 18.[facility] Social History Tobacco Use Types Packs/Day Years [...] - 1-dose 75+ series) 2025 INFLUENZA VACCINE (#1) 2025 HEPATITIS B VACCINE Aged Out No [...]
--- OUTSIDE RECORDS SUMMARY | 2025-01-08 16:04 | XMS_ITS | Encounter Summary ---
Author Organization [facility] Address [address] [place] [id number] Care Team Providers Care Skein Spooler Name Role Phone Aubrie Gupta Primary Care Provider [phone] Encounter Details Date Type Department Care Team (Late st Contact Info) Description 12/08/2024 Abstract [facility], [facility] [address] [place] [address] Richelle Aranda MA Social History Tobacco Use Types Packs/Day Years Used Date Smoking Tobacco: Never Passive Smoke Exposure: Never Smokeless Tobacco: Never Alcohol Use Standard Drinks/Week Comments Yes 0 (1 standard drink = 0.6 oz pur e alcohol) PHQ-2 Answer Date Recorded Patient Health Questionnaire-2 Score 0 05/15/2024 Sex and Gender Information Value Date Recorded Sex Assigned at Not on file Legal 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 [facility] [address], [place] [phone] documented as of this encounter Procedures Procedure Name Priority Date/Time Associated Diagnosis Comments LIPID PANEL Routine 03/30/2024 documented in this encounter Results * LIPID PANEL (03/30/2024) CHOLESTEROL 135 TRIGLYCERIDES 74 HDL 42 LDL (CALCULATED) 78 NON HDL CHOLESTEROL 93 us Default History Genericprovider LABORATORY Final Result documented in this encounter Visit Diagnoses Not on filedocumented in this encounter Care Teams Skein Spooler Relationship Specialty Start Date End Date Aubrie Gupta DO PCP - General FAMILY PRACTICE 12/07/19 documented as of this encounter
--- OUTSIDE RECORDS SUMMARY | 2025-01-08 16:04 | XMS_ITS | Clinical Summary ---
Author Organization [facility] Address [facility] [place] [address] Care Team Providers Care Pneumatic Tool Operator Name Role Phone Aubrie Gupta Primary Care Provider [phone] Allergies No known active allergies Medications simvastatin [...] Active Active Problems No known active problems Encounters Date Type Department Care Team Description 12/12/2024 Telephone [facility] [address] [address] Rozina Petersen RMA Consult 12/08/2024 Telephone [facility] [address] [address] Rozina Petersen RMA Consult (Consult & 30d monitor) 12/08/2024 Abstract [facility] [address] [address] Richelle Aranda MA 12/05/2024 Scan [facility], [address] [address] Scanned, Doc Pccl from Last 3 Months Family History Medical History Relation Comments Cancer [...] on file Legal 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 Gender Identity Not on file Sexual Orientation Not on file Last Filed Vital Signs Vital Sign Reading Time Taken Comments Blood Pressure 138/86 05/15/2024 8:00 AM ELECTRICAL ELECTRONICS TECHNICIAN Pulse 88 05/15/2024 8:00 AM ELECTRICAL ELECTRONICS TECHNICIAN Temperature 36.6 C (97.8 F) 05/15/2024 8:00 AM ELECTRICAL ELECTRONICS TECHNICIAN Respiratory Rate 20 05/15/2024 8:00 AM ELECTRICAL ELECTRONICS TECHNICIAN Oxygen Saturation 96% 05/15/2024 8:00 AM ELECTRICAL ELECTRONICS TECHNICIAN Inhaled Oxygen Concentration - - Weight 106.6 kg (235 lb) 05/15/2024 8:00 AM ELECTRICAL ELECTRONICS TECHNICIAN Height 177.8 cm (5' 10) 05/15/2024 8:00 AM ELECTRICAL ELECTRONICS TECHNICIAN Body Mass Index 33.72 05/15/2024 8:00 AM ELECTRICAL ELECTRONICS TECHNICIAN Plan of Treatment Upcoming Encounters Date Type Department Care Team (Late st Contact Info) Description 01/10/2025 9:00 AM CDT Office Visit [facility] [address] [place] [phone] Hunter Barnard MD [facility]. [address] [phone] Health Maintenance Due Date Last Done Comments Colorectal Cancer Screening Colonoscopy (10 Years) 1950 Hepatitis C 01/27/1968 DTaP, Tdap and Td Vaccines ( 1 - Tdap) 1969 Pneumococcal Vaccine: 50+ Ye ars (1 of 1 - PCV) 01/27/2000 Zoster Vaccines (1 of 2) 01/27/2000 Annual Medicare Wellness Visit 2015 COVID-19 Vaccine (2023-2 5 season) 2024 PHQ-2 (Physician [place]) 05/31/2024 05/15/2024 RSV Immunization or 60+ Years [...] complete this topic Insurance [employer] Care Teams Pneumatic Tool Operator Relationship Specialty Start Date End Date Aubrie Gupta DO PCP - General FAMILY PRACTICE 12/07/19
== END 2025-01-08 16:01 | disposition home or self-care (01) ==
PROVIDERS: PCP Physician Assistant Medical; Visit Provider Physician Assistant Medical
DX: R93.2 Abnormal findings on diagnostic imaging of liver and biliary tract (principal); N28.1 Cyst of kidney, acquired
CPT/HCPCS: 74183; A9577